=== PATIENT | female | born 1970 | race Asian ===

== ENCOUNTER → 2023-06-27 | Outpatient (CLI) | payer MEDICARE, OTHER ==
[~2023-06-27] VITALS: Ht 157.5 cm; Wt 58.5 kg
[~2023-06-27] MED LIST: ALBU2TAB46 PO; MONT-35 PO; PRED-729 PO; ROSU10TA72 PO
[2023-06-27 13:54] VITALS: BP 116/73; PULSE 70; RESP 19; TEMP 98.3; O2SAT 96
== END | disposition home or self-care (01) ==
LOC: SRCNTR 12:55
PROVIDERS: ATTEND Internal Medicine Pulmonary Disease
DX: J45.40 Moderate persistent asthma, uncomplicated (principal); E78.5 Hyperlipidemia, unspecified
CPT/HCPCS: G0463; Z7500